=== PATIENT | male | born 1940 | race Caucasian/White ===

== ENCOUNTER 2019-02-16 15:28 | Emergency (ER) | payer MEDICARE, OTHER ==
--- NOTE | 2019-02-16 15:35 | Emergency Department Record ---
History of Present Illness - General Chief Complaint: Abdominal Pain Stated Complaint: STOMACH PAIN,NAUSEA,DEHYDRATED Time Seen by Provider: 02/16/19 15:29 Source: Patient, RN notes reviewed - History of Present Illness Initial Comments: patient hasn increased stooling out of his iliostomy watery and other family members sick with fevers and bodyaches and one other member vomiting with GI complaints. His symptoms started two days ago and he is fatiqued and he took immodium and that slowed the stooling downno abdominal pain and pmh Crohn's disease and colon removed 5 years ago and aortic valve replacement 2 years ago. - Related Data Home Medications Medication Instructions Recorded Confirmed Last Taken Amlodipine Besylate [Norvasc] 5 mg PO DAILY 02/16/19 02/16/19 02/16/19 Famotidine [Pepcid] 40 mg PO BID 02/16/19 02/16/19 02/16/19 Levothyroxine Sodium [Synthroid] 150 mcg PO DAILY 02/16/19 02/16/19 02/16/19 Losartan Potassium 25 mg PO DAILY 02/16/19 02/16/19 02/16/19 Oxycodone HCl/Acetaminophen 1 tab PO Q6H PRN 02/16/19 02/16/19 02/15/19 [Percocet 5mg/325mg] Rosuvastatin Calcium [Crestor] 5 mg PO DAILY 02/16/19 02/16/19 02/16/19 Allergies Allergy/AdvReac Type Severity Reaction Status Date / Time No Known Drug Allergies Allergy Verified 02/16/19 15:59 Review of Systems Reviewed: No additional complaints except as noted below Constitutional: Reports: As per HPI. Denies: Chills, Fever, Malaise, Night sweats, Weakness, Weight change Eyes: Reports: As per HPI. Denies: Eye discharge, Eye pain, Photophobia, Vision change ENT: Reports: As per HPI. Denies: Congestion, Dental pain, Ear pain, Epistaxis, Hearing loss, Throat pain Respiratory: Reports: As per HPI. Denies: Cough, Dyspnea, Hemoptysis, Stridor, Wheezes Cardiovascular: Reports: As per HPI. Denies: Arrhythmia, Chest pain, Dyspnea on exertion, Edema, Murmurs, Orthopnea, Palpitations, Paroxysmal nocturnal dyspnea, Rheumatic Fever, Syncope Endocrine: Reports: As per HPI. Denies: Fatigue, Heat or cold intolerance, Polydipsia, Polyuria Gastrointestinal: Reports: As per HPI, Diarrhea, Nausea. Denies: Abdominal pain, Constipation, Hematemesis, Hematochezia, Melena, Vomiting Genitourinary: Reports: As per HPI. Denies: Dysuria, Frequency, Hematuria, Incontinence, Retention, Testicular pain, Testicular mass, Urgency Musculoskeletal: Reports: As per HPI. Denies: Arthralgia, Back pain, Gout, Joint swelling, Myalgia, Neck pain Skin: Reports: As per HPI. Denies: Bruising, Change in color, Change in hair/nails, Lesions, Pruritus, Rash Neurological: Reports: As per HPI. Denies: Abnormal gait, Confusion, Headache, Numbness, Paresthesias, Seizure, Tingling, Tremors, Vertigo, Weakness Psychiatric: Reports: As per HPI. Denies: Anxiety, Auditory hallucinations, Depression, Homicidal thoughts, Suicidal thoughts, Visual hallucinations Hematological/Lymphatic: Reports: As per HPI. Denies: Anemia, Blood Clots, Easy bleeding, Easy bruising, Swollen glands Physical Exam - General General Appearance: Alert, Oriented x3, Cooperative, No acute distress - Head Head exam: Normal inspection - Eye Eye exam: Normal appearance, PERRL Pupils: Normal accommodation - ENT ENT exam: Normal exam, Mucous membranes moist, Normal external ear exam, Normal orophraynx, TM's normal bilaterally Ear exam: Normal external inspection. negative: External canal tenderness Nasal Exam: Normal inspection. negative: Discharge, Sinus tenderness Mouth exam: Normal external inspection, Tongue normal Teeth exam: Normal inspection. negative: Dental caries Throat exam: Normal inspection. negative: Tonsillar erythema, Tonsillar exudate - Neck Neck exam: Normal inspection, Full ROM. negative: Tenderness - Respiratory Respiratory exam: Normal lung sounds bilaterally. negative: Respiratory distress - Cardiovascular Cardiovascular Exam: Regular rate, Normal rhythm, Normal heart sounds - GI/Abdominal GI/Abdominal exam: Soft, Normal bowel sounds. negative: Tenderness - Rectal Rectal exam: Deferred - exam: Deferred - Extremities Extremities exam: Normal inspection, Full ROM, Normal capillary refill. negative: Tenderness - Back Back exam: Reports: Normal inspection, Full ROM. Denies: Muscle spasm, Rash noted, Tenderness - Neurological Neurological exam: Alert, Normal gait, Oriented X3, Reflexes normal - Psychiatric Psychiatric exam: Normal affect, Normal mood - Skin Skin exam: Dry, Intact, Normal color, Warm Medical Decision Making - Data Complexity MDM Data: Labs Ordered and/or Reviewed - Lab Data Result diagrams: 02/16/19 16:00 02/16/19 16:00 Disposition Clinical Impression: Viral syndrome, Dehydration Disposition: Home, Self-Care Condition: (1) Good Instructions: Gastroenteritis (ED) Additional Instructions: follow up with family Dr in 2 days. clear liqids for 12 hours than bland food like applesauce , bananas, rice toast and yogurt Forms: Patient Portal Access Time of Disposition: 17:02 Quality - Quality Measures Quality Measures: N/A - Blood Pressure Screening Does Patient Have Any of the Following: No, Active Dx of HTN Blood Pressure Classification: Pre-Hypertensive BP Reading Systolic Measurement: 144 Diastolic Measurement: 82 Screening for High Blood Pressure: Patient Exclusion, Hx of HTN [G9744]
[2019-02-16] MEDS ORDERED: 0.9 % SODIUM CHLORIDE 1000ML 1,000 ML IV ONE (16:00)
[2019-02-16 16:12] LABS: ABSOLUTE NEUTROPHIL COUNT 7.19; BASO % 0.2 % (0-6); EOS % 1.2 % (0-6); HEMATOCRIT 52.9 % (42.0-52.0); HEMOGLOBIN 17.1 gm/dl (14.0-18.0); LYMPH % 10.8 % (16-45); MEAN CELL VOLUME 88.8 fl (81-97); MEAN CORPUSCULAR HGB CONC 32.3 g/dl (32-36); MEAN PLATELET VOLUME 9.3 fl (7.4-10.4); MONO % 7.8 % (0-9); PLATELET COUNT 333 K/uL (130-400); RED BLOOD COUNT 5.96 M/uL (4.40-5.70); RED CELL DISTRIBUTION WIDTH 16.3 % (11.5-14.5)
[2019-02-16 16:23] LABS: MEAN CORPUSCULAR HEMOGLOBIN 28.6 pg (27-33)
[2019-02-16 16:24] LABS: INFLUENZA A NEGATIVE (NEGATIVE); INFLUENZA B NEGATIVE (NEGATIVE)
[2019-02-16 16:25] LABS: BLOOD UREA NITROGEN 28 mg/dL (8-23); CREATININE 1.3 mg/dL (0.7-1.2); EST GLOMERULAR FILTRATION RATE 57 mL/min
[2019-02-16 16:26] LABS: LIPASE 10 U/L (13-60); TOTAL PROTEIN 7.9 g/dL (6.6-8.7)
[2019-02-16 16:28] LABS: GLUCOSE,RANDOM 188 mg/dL (74-109)
[2019-02-16 16:31] LABS: ALBUMIN 4.2 g/dL (4.0-5.0); ALKALINE PHOSPHATASE 91 U/L (40-129); ALT/SGPT 78 U/L (<41); AST/SGOT 70 U/L (10.0-50.0); BILIRUBIN,DIRECT < 0.2 mg/dL (0-0.3)
[2019-02-16 17:25] LABS: URINE APPEARANCE CLEAR; URINE BILIRUBIN SMALL (NEGATIVE); URINE BLOOD SMALL (NEGATIVE); URINE COLOR YELLOW; URINE GLUCOSE (UA) NEGATIVE (NEGATIVE); URINE KETONE 15 mg/dL (NEGATIVE); URINE LEUKOCYTE ESTERASE NEGATIVE (NEGATIVE); URINE NITRITE NEGATIVE (NEGATIVE); URINE UROBILINOGEN 0.2 E.U./dL (0.20 - 1.00)
[2019-02-16 17:34] LABS: URINE RBC 0 - 2 (NONE SEEN); URINE WBC 0 - 2 (0-2/hpf)
== END 2019-02-16 17:35 | disposition home or self-care (01) ==
LOC: ER 15:28
DX: E86.0 Dehydration (principal); R53.83 Other fatigue; B34.9 Viral infection, unspecified; R11.0 Nausea; Z95.2 Presence of prosthetic heart valve; I10 Essential (primary) hypertension
CPT/HCPCS: 80048; 80076; 81001; 83690; 85025; 87400; 96360; 96361; 99284

== ENCOUNTER 2019-02-17 14:39 | Observation (INO) | payer MEDICARE, OTHER ==
--- NOTE | 2019-02-17 14:52 | Emergency Department Record ---
History of Present Illness - General Chief Complaint: Abdominal Pain Stated Complaint: ABD PAIN Time Seen by Provider: 02/17/19 14:44 Source: Patient, Family Mode of Arrival: Wheelchair Limitations: No limitations - History of Present Illness Initial Comments: 78 yo male presents not feeling well the last three days. He states he developed nausea, vomiting and increased stool in his ostomy starting on Thursday evening. He (and his daughter) report that 7 out of about 18 people developed similar nausea, vomiting, and diarrhea. He was seen in the ED yesterday. He felt improved after IV fluids. By evening yesterday his nausea returned with some aching, "gnawing" abdominal pain. He states the loose stooling in the ostomy is still present but decreasing. He does not vomit but has significant burping. No fever. No blood in any vomit or stool. His ostomy has been present for about 5 years. He reports he had a colectomy due to significant ulcerative colitis. PCP is Dr Roblero in [place]. He is unsure who his surgeon or GI special are. PMHx of SBO, TVAR (aortic valve replacement due to ), UC, CAD, COPD, high output ileostomy, KRISTIN, Polio, Asthma, DVT, Former Smoker. MD Complaint: Abdominal pain -: Days(s) (3 days) Location: Epigastric, Periumbilical Radiation: Epigastric Migration to: Epigastric, Periumbilical Severity: Moderate Quality: Aching, Burning, Cramping, Other Consistency: Constant Improves With: Nothing Worsens With: Eating Context: Possible food poisoning (7 out of 18 people at a meal developed GI symptoms) Associated Symptoms: Anorexia, Nausea - Related Data Allergies Allergy/AdvReac Type Severity Reaction Status Date / Time No Known Drug Allergies Allergy Verified 02/16/19 15:59 Review of Systems Constitutional: Reports: Malaise. Denies: Chills, Fever Eyes: Denies: Eye discharge ENT: Denies: Congestion, Ear pain, Throat pain Respiratory: Denies: Cough, Dyspnea, Hemoptysis, Stridor, Wheezes Cardiovascular: Denies: Chest pain, Palpitations, Syncope Endocrine: Denies: Polydipsia, Polyuria Gastrointestinal: Reports: Abdominal pain, Diarrhea, Nausea. Denies: Con stipation, Hematemesis, Hematochezia, Melena, Vomiting Genitourinary: Denies: Discharge, Dysuria, Frequency, Hematuria Musculoskeletal: Denies: Arthralgia, Back pain, Myalgia Skin: Denies: Bruising, Change in color, Rash Neurological: Denies: Headache, Numbness, Weakness Psychiatric: Denies: Anxiety Hematological/Lymphatic: Denies: Easy bleeding, Easy bruising Past Medical History - SOCIAL HISTORY Smoking Status: Former smoker Drug Use: None - RESPIRATORY Hx Respiratory Disorders: Yes Hx Asthma: Yes - CARDIOVASCULAR Hx Cardio Disorders: Yes Hx Cardiac Cath: Yes Hx Hypertension: Yes - NEURO Hx Neuro Disorders: No - GI Hx GI Disorders: Yes Hx Crohn's Disease: Yes Comment:: lots of bowel problems/ - Hx Genitourinary Disorders: No - ENDOCRINE Hx Endocrine Disorders: Yes Hx Thyroid Disease: Yes - MUSCULOSKELETAL Hx Musculoskeletal Disorders: Yes Comment:: Polio - PSYCH Hx Psych Problems: No - HEMATOLOGY/ONCOLOGY Hx Hematology/Oncology Disorders: No Physical Exam - General General Appearance: Alert, Oriented x3, Cooperative, No acute distress Limitations: No limitations - Head Head exam: Atraumatic, Normal inspection - Eye Eye exam: Normal appearance, PERRL. negative: Conjunctival injection, Scleral icterus - ENT ENT exam: Normal exam, Mucous membranes moist Ear exam: Normal external inspection Nasal Exam: Normal inspection Mouth exam: Normal external inspection Throat exam: Normal inspection - Neck Neck exam: Normal inspection. negative: Lymphadenopathy, Tenderness - Respiratory Respiratory exam: Normal lung sounds bilaterally. negative: Accessory muscle use, Decreased breath sounds, Prolonged expiratory, Respiratory distress, Rhonchi, Stridor, Wheezes - Cardiovascular Cardiovascular Exam: Normal rhythm, Normal heart sounds Peripheral Pulses: 2+: Radial (R), Radial (L) - GI/Abdominal GI/Abdominal exam: Soft, Tenderness (mild mid line umbilical to epigastric tenderness, very soft, no rebound or guarding, ostomy intact, (empty - he changed the bag prior to arrival)). negative: Distended, Guarding, Rebound, Ri gid - Extremities Extremities exam: Normal inspection - Back Back exam: Denies: CVA tenderness (R), CVA tenderness (L) - Neurological Neurological exam: Alert, Oriented X3 - Psychiatric Psychiatric exam: negative: Agitated, Anxious - Skin Skin exam: negative: Abrasion, Cyanosis, Dry, Intact, Mottled Course - Reevaluation(s) Reevaluation #1: 02/17/19 15:31 The CBC was reviewed The WBC is 12.6 The CMP was reviewed. The CR is 1.2 HCO3 is 20 Glucose is 233 02/17/19 15:32 Lipase is normal 02/17/19 15:49 The nausea and discomfort are improved but not gone Waiting for CT scan. 1/2 bottle of oral consumed 02/17/19 16:09 02/17/19 17:[address] scan results was reviewed and a copy provided to the patient. No signs of obstruction or inflammation. The incidental findings were discussed with the patient and his daughter. The patient still has some nausea and occasional pain. I recommend OBV overnight with GI rest, IVF and symptomatic care given his likely enteritis has not resolved. Although he is feeling better he agrees with the plan. I SW Natalia Sue ERECTOR OPERATOR regarding the admission. 02/17/19 18:49 Medical Decision Making - Lab Data Result diagrams: 02/17/19 15:00 02/17/19 15:00 Disposition Disposition: Admit Clinical Impression: Nausea Diarrhea Qualifiers: Diarrhea type: unspecified type Qualified Code(s): R19.7 - Diarrhea, unspecified Abdominal pain Qualifiers: Abdominal location: unspecified location Qualified Code(s): R10.9 - Unspecified abdominal pain Disposition: Still a Patient at [facility] Decision to Admit: Admit from ER Decision to Admit Date: 02/17/19 Decision to Admit Time: 17:07 Condition: (2) Stable Forms: Patient Portal Access Time of Disposition: 17:08 Quality - Quality Measures Quality Measures: N/A - Blood Pressure Screening Does Patient Have Any of the Following: No, Active Dx of HTN Blood Pressure Classification: Pre-Hypertensive BP Reading Systolic Measurement: 116 Diastolic Measurement: 81 Screening for High Blood Pressure: Patient Exclusion, Hx of HTN [G9744]
[2019-02-17] MEDS ORDERED: 0.9 % SODIUM CHLORIDE 1000ML 1,000 ML IV ONE ×2 (14:53→19:27)
[2019-02-17] MEDS ORDERED: ACETAMINOPHEN 1,000 MG/100 ML BTL IVPB ONE (14:53)
[2019-02-17] MEDS ORDERED: ONDANSETRON HCL IV 4 MG/2 ML VIAL IVP ONE ×2 (14:53→16:09)
[2019-02-17 15:09] LABS: ABSOLUTE NEUTROPHIL COUNT 11.27; BASO % 0.1 % (0-6); EOS % 0.1 % (0-6); HEMATOCRIT 50.9 % (42.0-52.0); HEMOGLOBIN 16.6 gm/dl (14.0-18.0); LYMPH % 5.3 % (16-45); MEAN CELL VOLUME 89.1 fl (81-97); MEAN CORPUSCULAR HGB CONC 32.6 g/dl (32-36); MEAN PLATELET VOLUME 9.1 fl (7.4-10.4); MONO % 4.9 % (0-9); PLATELET COUNT 334 K/uL (130-400); RED BLOOD COUNT 5.71 M/uL (4.40-5.70); WHITE BLOOD COUNT W/O DIFF 12.6 K/uL (4.2-12.2)
[2019-02-17 15:18] LABS: BLOOD UREA NITROGEN 31 mg/dL (8-23); CREATININE 1.2 mg/dL (0.7-1.2); EST GLOMERULAR FILTRATION RATE > 60 mL/min; TOTAL PROTEIN 7.4 g/dL (6.6-8.7)
[2019-02-17 15:19] LABS: LIPASE 7 U/L (13-60)
[2019-02-17 15:20] LABS: GLUCOSE,RANDOM 233 mg/dL (74-109)
[2019-02-17 15:21] LABS: INR 1.3; PROTHROMBIN TIME (PATIENT) 13.1 SECONDS (9.5-12.1)
[2019-02-17 15:23] LABS: ALB/GLOB RATIO 1.2 (1.1-1.8); ALKALINE PHOSPHATASE 77 U/L (40-129); ALT/SGPT 49 U/L (<41); AST/SGOT 33 U/L (10.0-50.0)
[2019-02-17 15:27] LABS: PLATELET ESTIMATE NORMAL (NORMAL)
[2019-02-17 15:28] LABS: ANISOCYTOSIS 1+
[2019-02-17] MEDS ORDERED: MORPHINE SULFATE 5 MG/ML VIAL IVP ONE ×2 (16:09→17:37)
--- NOTE | 2019-02-17 16:52 | CT SCAN REPORT ---
EXAMINATION: CT Abdomen and Pelvis without IV Contrast EXAM DATE: 02/17/2019 4:43 PM TECHNIQUE: Standard protocol CT imaging of the abdomen and pelvis was performed without intravenous c ontrast. INDICATION: nausea, pain, Hx of ostomy colectomy,diarrhea COMPARISON: None ENCOUNTER: Not applicable CT ABDOMEN AND PELVIS FINDINGS: Lung Bases: Basilar bronchial wall thickening with occasional mucus impaction. No basilar pulmonary c onsolidation. There is a large hiatal hernia. There are coronary artery calcifications. Hepatobiliary: The liver has a normal size with a smooth surface. The gallbladder is absent. There is no biliary dilatation. Pancreas: The pancreas is normal. Spleen: The spleen is not enlarged. Adrenals: The adrenal glands are normal. Kidneys, Ureters, & Bladder: Exophytic fluid attenuating lesion at the superior pole left kidney anthony ures 3.6 x 4.3 x 4.7 cm with hyperdense material layering dependently. Anterior left renal fluid atte nuating lesion is also present. Multiple left renal calculi measuring up to 2 mm. No hydronephrosis. Probable medullary sinus cysts at the lower pole left kidney. Both ureters have a normal course and c aliber and the urinary bladder a normal morphology and uniform wall thickness. No ureteral or bladder calculi are identified. Gastrointestinal: The stomach and small bowel are normal with no obstruction or inflammation. Prior c olectomy. End ileostomy in the right upper abdomen. Reproductive Organs: Unremarkable Lymphatic System: There is no adenopathy within the abdomen or pelvis. Vasculature: Normal caliber abdominal aorta with significant atherosclerotic disease. Peritoneum: No free fluid, free air, or inflammation Abdominal wall & Musculoskeletal: No suspicious bone lesions. Advanced degenerative changes of the th oracolumbar spine. Suspect spinal canal stenosis at T12-L1 related to broad-based disc bulge.. Assessment of the solid organs, soft tissues, and vascular structures is overall limited on noncontra st imaging, IMPRESSION: 1. Prior colectomy with right upper abdominal ileostomy. 2. Nonobstructive left nephrolithiasis. 3. Large hiatal hernia. 4. Lower lung bronchitis. 5. Possible spinal canal stenosis. Dictated by: Frandy Apodaca MD on 02/17/2019 4:41 PM. .
[2019-02-17] MEDS ORDERED: FAMOTIDINE 20MG TABLET PO ONE (17:43)
[2019-02-17] MEDS ORDERED: MORPHINE SULFATE 5 MG/ML VIAL IVP PRN (19:27)
[2019-02-17] MEDS ORDERED: ONDANSETRON HCL IV 4 MG/2 ML VIAL IVP PRN (19:27)
[2019-02-17] MEDS: CALCIUM CARBONATE 500 MG TAB.CHEW PO PRN (20:26)
[2019-02-17 23:51] LABS: MOLECULAR C DIFF TOXIN SCREEN NOT DETECTED (NOT DETECT)
[2019-02-18 00:04] LABS: CRYPTOSPORIDIUM PARVUM ANTIGEN NOT DETECTED (NOT DETECT)
[2019-02-18 00:19] LABS: ROTOVIRUS NOT DETECTED (NOT DETECT)
[2019-02-18] MEDS: CALCIUM CARBONATE 500 MG TAB.CHEW PO PRN ×3 (02:24→15:12)
[2019-02-18] MEDS ORDERED: FAMOTIDINE 20MG TABLET PO SCH (07:00)
[2019-02-18] MEDS ORDERED: DIPHENHYDRAMINE HCL 25 MG CAPSULE PO ONE (08:30)
--- NOTE | 2019-02-18 09:38 | History & Physical ---
History of Present Illness - Date of Service Date of Service for History & Physical: 02/18/19 - History of Present Illness Admitting Diagnosis: Dairrhea, nausea, abdominal pain, dehydration History of Present Illness: 78 yo male presents to [facility] ER for dehydration, abd pain, liquid colostomy output and nausea with no vomiting. Pt attended a family gather of 18 ppl, 7 of them develop GI symptoms of varying degrees. Most recovered in 1-2 days but pt has colostomy, having freq liq output and decreased PO intake since thursday. PMH SBO, Crohn's/UC (colostomy), with TAVR, CAD, COPD, KRISTIN, Polio, asthma, DVT, and former smoker. Abd/pelvis CT - no acute process, has known large hiatal hernia, COPD but also found kidney stones and renal cysts Pt was given 500cc NS bolus, Pepcid 20mg IVP, MS 5mg IVP, tylenol 1000mg IVP, Zofran 4mg IVP. Selected Entries 02/17/19 02/17/19 14:54 19:27 Temperature 97.7 F Temperature Oral Source Pulse Rate 108 H Respiratory 20 Rate Blood Pressure 116/81 Blood Pressure Sitting Position Pulse Ox 97 Oxygen Delivery Room Air Method Laboratory Tests 02/17/19 02/17/19 02/17/19 15:00 15:00 15:00 WBC 12.6 H RBC 5.71 H Hgb 16.6 Hct 50.9 Plt Count 334 PT 13.1 H INR 1.3 APTT 29.0 Sodium 134 L Potassium 4.5 Chloride 98 Carbon Dioxide 20.0 L Anion Gap 16.0 BUN 31 H Creatinine 1.2 Estimated GFR > 60 Random Glucose 233 H Calcium 9.5 Total Bilirubin 0.30 AST 33 ALT 49 H Alkaline Phosphatase 77 Total Protein 7.4 Albumin 4.0 Globulin 3.4 Albumin/Globulin Ratio 1.2 Lipase 7 L Stool Occult Blood Stool for White Cells Rotavirus Antigen Stl C.difficile Tox A&B Cryptosporid parvum Ag Giardia lamblia Ag 02/17/19 02/17/19 02/17/19 20:45 20:45 20:45 WBC RBC Hgb Hct Plt Count PT INR APTT Sodium Potassium Chloride Carbon Dioxide Anion Gap BUN Creatinine Estimated GFR Random Glucose Calcium Total Bilirubin AST ALT Alkaline Phosphatase Total Protein Albumin Globulin Albumin/Globulin Ratio Lipase Stool Occult Blood Positive H Stool for White Cells No wbc's observed Rotavirus Antigen Not detected Stl C.difficile Tox A&B Not detected Cryptosporid parvum Ag Not detected Giardia lamblia Ag Not detected 02/18/19 Pt sitting up in bed, no acute distress, tolerating jello and yogurt. Pt reports that he has a return of appetite, no nausea, colostomy output has slowed down but us still looser than his normal paste like consistency. Making light yellow urine compared to the dark urine before fluids. Lungs dim but clear, Heart RRR no mumur noted (recent TAVR), no edema in legs. BSx3 (RUQ not accessible r/t colostomy). Stoma protruding 1-2 cm, beefy red. Pt reports stoma is baseline even with the diarrhea. POC stop IVF, encouraged PO intake, advance diet to soft by lunch. If pt able to tolerate food and water, make urine, then he can d/c today. F/u PCP in 1 week PCP Jolanta RITCHIE Travel Screening - Travel/Exposure Within Last 30 Days Have you traveled within the last 30 days?: No - Travel/Exposure Within Last Year Have you traveled outside the [place] in the last year?: No - Additonal Travel Details Have you been exposed to anyone with a communicable illness?: No Review of Systems Constitutional: Reports: Malaise. Denies: Chills, Fever Eyes: Denies: Eye discharge ENT: Denies: Congestion, Ear pain, Throat pain Respiratory: Denies: Cough, Dyspnea, Hemoptysis, Stridor, Wheezes Cardiovascular: Denies: Chest pain, Palpitations, Syncope Endocrine: Denies: Polydipsia, Polyuria Gastrointestinal: Reports: Abdominal pain, Diarrhea, Nausea. Denies: Constipation, Hematemesis, Hematochezia, Melena, Vomiting Genitourinary: Denies: Discharge, Dysuria, Frequency, Hematuria Musculoskeletal: Denies: Arthralgia, Back pain, Myalgia Skin: Denies: Bruising, Change in color, Rash Neurological: Denies: Headache, Numbness, Weakness Psychiatric: Denies: Anxiety Hematological/Lymphatic: Denies: Easy bleeding, Easy bruising Past Medical History - SOCIAL HISTORY Smoking Status: Former smoker Alcohol Use: Occasional Drug Use: None - RESPIRATORY Hx Respiratory Disorders: Yes Hx Asthma: Yes (childhood - resolved) - CARDIOVASCULAR Hx Cardio Disorders: Yes Hx Cardiac Cath: Yes Hx Hypertension: Yes Comment:: aortic vv replacement 2017 - NEURO Hx Neuro Disorders: No - GI Hx GI Disorders: Yes Hx Abdominal Pain: Yes Hx Crohn's Disease: Yes Hx GI Bleed: Yes Hx Irritable Bowel: Yes Hx Obstructive Bowel: Yes (prior to colectomy) Comment:: colitis/colectomy - Hx Genitourinary Disorders: Yes Hx Kidney Stones: Yes - ENDOCRINE Hx Endocrine Disorders: Yes Hx Thyroid Disease: Yes - MUSCULOSKELETAL Hx Musculoskeletal Disorders: Yes Hx Arthritis: Yes Comment:: right shoulder - PSYCH Hx Psych Problems: No - HEMATOLOGY/ONCOLOGY Hx Hematology/Oncology Disorders: No Hx Blood Transfusions: Yes Hx Blood Transfusion Reaction: No Family Medical History Any Significant Family History?: No Hx Alcohol Use: Brother/Sister Hx Cancer: Brother/Sister Hx Depression: Brother/Sister Hx Diabetes: Mother Hx Heart Disease: Brother/Sister Hx HTN: Brother/Sister H&P Meds/Allergies - Allergies Allergies: Allergies Allergy/AdvReac Type Severity Reaction Status Date / Time No Known Drug Allergies Allergy Verified 02/16/19 15:59 - Active Medications Active Medications: Current Medications Amlodipine Besylate (Norvasc) 5 mg PO DAILY [facility] Calcium Carbonate/Glycine (Tums) 1,000 mg PO Q4H PRN PRN Reason: HEARTBURN Last Admin: 02/18/19 07:18 Dose: 1,000 mg Documented by: Famotidine (Pepcid) 40 mg PO BIDAC MARY BETH Last Admin: 02/18/19 07:16 Dose: 40 mg Documented by: Levothyroxine Sodium (Synthroid) 150 mcg PO DAILY [facility] Losartan Potassium (Cozaar) 25 mg PO DAILY MARY BETH Morphine Sulfate (Morphine Sulfate) 5 mg IVP Q4H PRN PRN Reason: PAIN - SEVERE (8-10) Stop: 02/24/19 19:28 Last Admin: 02/17/19 22:09 Dose: 5 mg Documented by: Ondansetron HCl (Zofran) 4 mg IVP Q4H PRN PRN Reason: NAUSEA Physical Exam - Vital Signs Vital Signs: Vital Signs - Last 24 Hrs Temp Pulse Pulse Resp BP BP Pulse Ox 02/18/19 06:00 98.1 F 85 18 122/52 95 02/17/19 19:27 97.7 F 107 H 18 149/76 94 L 02/17/19 14:54 108 H 20 116/81 97 - General General Appearance: Alert, Oriented x3, Cooperative, No acute distress Limitations: No limitations - Head Head exam: Atraumatic, Normal inspection - Eye Eye exam: Normal appearance, PERRL. negative: Conjunctival injection, Scleral icterus - ENT ENT exam: Normal exam, Mucous membranes dry Ear exam: Normal external inspection Nasal Exam: Normal inspection Mouth exam: Normal external inspection Throat exam: Normal inspection - Neck Neck exam: Normal inspection. negative: Lymphadenopathy, Tenderness - Respiratory Respiratory exam: Normal lung sounds bilaterally. negative: Accessory muscle use, Decreased breath sounds, Prolonged expiratory, Respiratory distress, Rhonchi, Stridor, Wheezes - Cardiovascular Cardiovascular Exam: Normal rhythm, Normal heart sounds Peripheral Pulses: 2+: Radial (R), Radial (L), Dorsalis Pedis (R), Dorsalis Pedis (L) - GI/Abdominal GI/Abdominal exam: Soft. negative: Distended, Guarding, Rebound, Rigid, Tenderness - Rectal Rectal exam: Deferred - exam: Deferred - Extremities Extremities exam: Normal inspection - Back Back exam: Denies: CVA tenderness (R), CVA tenderness (L) - Neurological Neurological exam: Alert, Oriented X3 - Psychiatric Psychiatric exam: negative: Agitated, Anxious - Skin Skin exam: negative: Abrasion, Cyanosis, Dry, Intact, Mottled Results - Labs Result Diagrams: 02/17/19 15:00 02/17/19 15:00 Labs Last 24 Hours: Laboratory Results - last 24 hr 02/17/19 02/17/19 02/17/19 15:00 15:00 15:00 WBC 12.6 H RBC 5.71 H Hgb 16.6 Hct 50.9 MCV 89.1 MCH 29.0 MCHC 32.6 RDW 16.0 H Plt Count 334 MPV 9.1 Neutrophils % 83.0 H Band Neutrophils % 8.0 H Lymphocytes % 5.3 L Monocytes % 4.9 Eosinophils % 0.1 Basophils % 0.1 Absolute Neutrophils 11.27 Lymphocytes 5.0 L Monocytes 4.0 Platelet Estimate Normal Anisocytosis 1+ PT 13.1 H INR 1.3 APTT 29.0 Sodium 134 L Potassium 4.5 Chloride 98 Carbon Dioxide 20.0 L Anion Gap 16.0 BUN 31 H Creatinine 1.2 Estimated GFR > 60 Random Glucose 233 H Calcium 9.5 Total Bilirubin 0.30 AST 33 ALT 49 H Alkaline Phosphatase 77 Total Protein 7.4 Albumin 4.0 Globulin 3.4 Albumin/Globulin Ratio 1.2 Lipase 7 L Stool Occult Blood Stool for White Cells Rotavirus Antigen Stl C.difficile Tox A&B Cryptosporid parvum Ag Giardia lamblia Ag 02/17/19 02/17/19 02/17/19 20:45 20:45 20:45 WBC RBC Hgb Hct MCV MCH MCHC RDW Plt Count MPV Neutrophils % Band Neutrophils % Lymphocytes % Monocytes % Eosinophils % Basophils % Absolute Neutrophils Lymphocytes Monocytes Platelet Estimate Anisocytosis PT INR APTT Sodium Potassium Chloride Carbon Dioxide Anion Gap BUN Creatinine Estimated GFR Random Glucose Calcium Total Bilirubin AST ALT Alkaline Phosphatase Total Protein Albumin Globulin Albumin/Globulin Ratio Lipase Stool Occult Blood Positive H Stool for White Cells No wbc's observed Rotavirus Antigen Not detected Stl C.difficile Tox A&B Not detected Cryptosporid parvum Ag Not detected Giardia lamblia Ag Not detected - Imaging and Cardiology CT scan - abdomen Status: Report reviewed VTE H&P Assessment - Risk for VTE Risk for VTE: Yes Risk Level: Moderate Risk Assessment Date: 02/18/19 Risk Assessment Time: 10:00 VTE Orders Placed or Will Be Placed: Yes Plan - Detailed Diagnosis and Plan (1) Gastroenteritis Current Visit: Yes Status: Acute Base Code: K52.9 - NONINFECTIVE GASTROENTERITIS AND COLITIS, UNSPECIFIED Comment: 02/18/19 -pt is tolerating jello and yougurt at this time, still having liq/loose colostomy output -no nausea, no abd pain- all controlled with tums -pt to attempt to advance diet and d/c today (2) Abdominal pain Current Visit: Yes Status: Acute Qualifiers: Abdominal location: unspecified location Qualified Code(s): R10.9 - Uns pecified abdominal pain Base Code: R10.9 - UNSPECIFIED ABDOMINAL PAIN Comment: 02/18/19 -pt was given morphine 5mg x2 in ER and once on the floor -no pain this AM, pain controlled with tums -continue to monitor -CT abd not acute process -stool studies neg except for occult positive (f/u PCP) (3) Diarrhea Current Visit: Yes Status: Acute Qualifiers: Diarrhea type: unspecified type Qualified Code(s): R19.7 - Diarrhea, unspecified Base Code: R19.7 - DIARRHEA, UNSPECIFIED Comment: 02/18/19 -colostomy output has been liq for 4 days, continues to be loose but outpt volume has decreased -pt attempting to advance diet and tolerated PO intake for fluid needs -stool cultures neg for infection (4) Nausea Current Visit: Yes Status: Acute Base Code: R11.0 - NAUSEA Comment: 02/18/19 -pt was given Zofran 4mg IVP last night but nause has resolved since arrival to the floor -appetite is returning, pt attempting to advance diet at this time -Ct neg for acute process (5) Dehydration Current Visit: No Status: Acute Base Code: E86.0 - DEHYDRATION Comment: 02/18/19 -Pt was given 500 cc NS Bolus, NS 125/HR infusing through the night - BUN 31, Cr 1.2, GFR>60 -stop IVF, pt encouraged to increase PO intake -continue to monitor (6) DVT prophylaxis Current Visit: Yes Status: Acute Base Code: Z29.9 - ENCOUNTER FOR PROPHYLACTIC MEASURES, UNSPECIFIED Comment: 02/18/19 -lovenox if pt stays more than 1 over night (7) Full code status Current Visit: Yes Status: Acute Base Code: Z78.9 - OTHER SPECIFIED HEALTH STATUS Comment: 02/18/19 -full code
[2019-02-18] MEDS ORDERED: LEVOTHYROXINE SODIUM 150 MCG TABLET PO SCH (10:00)
[2019-02-18] MEDS ORDERED: LOSARTAN POTASSIUM 25 MG TABLET PO SCH (10:00)
[2019-02-18] MEDS ORDERED: AMLODIPINE BESYLATE 5MG TAB PO SCH (10:00)
[2019-02-18 12:30] LABS: BLOOD UREA NITROGEN 20 mg/dL (8-23); CREATININE 0.9 mg/dL (0.7-1.2); EST GLOMERULAR FILTRATION RATE > 60 mL/min
[2019-02-18 12:32] LABS: GLUCOSE,RANDOM 149 mg/dL (74-109)
--- NOTE | 2019-02-18 15:43 | Discharge Summary ---
Providers Discharge Summary Date: 02/18/19 Date of admission: 02/17/19 19:19 Expected Date of Discharge: 02/18/19 Attending physician: NADINE NICHOLS Primary care physician: JOLANTA ARORA Physical Exam - Vital Signs Vital Signs: Vital Signs - Last 24 Hrs Temp Pulse Resp BP Pulse Ox 02/18/19 14:00 97.9 F 86 18 121/54 94 L 02/18/19 06:00 98.1 F 85 18 122/52 95 02/17/19 19:27 97.7 F 107 H 18 149/76 94 L - General General Appearance: Alert, Oriented x3, Cooperative, No acute distress Limitations: No limitations - Head Head exam: Atraumatic, Normal inspection - Eye Eye exam: Normal appearance, PERRL. negative: Conjunctival injection, Scleral icterus - ENT ENT exam: Normal exam, Mucous membranes dry Ear exam: Normal external inspection Nasal Exam: Normal inspection Mouth exam: Normal external inspection Throat exam: Normal inspection - Neck Neck exam: Normal inspection. negative: Lymphadenopathy, Tenderness - Respiratory Respiratory exam: Normal lung sounds bilaterally. negative: Accessory muscle use, Decreased breath sounds, Prolonged expiratory, Respiratory distress, Rhonchi, Stridor, Wheezes - Cardiovascular Cardiovascular Exam: Normal rhythm, Normal heart sounds Peripheral Pulses: 2+: Radial (R), Radial (L), Dorsalis Pedis (R), Dorsalis Pedis (L) - GI/Abdominal GI/Abdominal exam: Soft. negative: Distended, Guarding, Rebound, Rigid, Tenderness - Rectal Rectal exam: Deferred - exam: Deferred - Extremities Extremities exam: Normal inspection - Back Back exam: Denies: CVA tenderness (R), CVA tenderness (L) - Neurological Neurological exam: Alert, Oriented X3 - Psychiatric Psychiatric exam: negative: Agitated, Anxious - Skin Skin exam: negative: Abrasion, Cyanosis, Dry, Intact, Mottled Hospitalization - Hospitalization Admission Diagnosis: Dairrhea, nausea, abdominal pain, dehydration - Problem List/Discharge Diagnosis (1) Gastroenteritis Current Visit: Yes Status: Acute Base Code: K52.9 - NONINFECTIVE GASTROENTERITIS AND COLITIS, UNSPECIFIED Comment: 02/18/19 -pt is tolerating jello and yougurt at this time, still having liq/loose colostomy output -no nausea, no abd pain- all controlled with tums -pt to attempt to advance diet and d/c today -pt has tolerated diet advancement, d/c (2) Abdominal pain Current Visit: Yes Status: Acute Discharge Diagnosis: Abdominal location: unspecified location Qualified Code(s): R10.9 - Unspecified abdominal pain Base Code: R10.9 - UNSPECIFIED ABDOMINAL PAIN Comment: 02/18/19 -pt was given morphine 5mg x2 in ER and once on the floor -no pain this AM, pain controlled with tums -continue to monitor -CT abd not acute process -stool studies neg except for occult positive (f/u PCP) (3) Diarrhea Current Visit: Yes Status: Acute Discharge Diagnosis: Diarrhea type: unspecified type Qualified Code(s): R19.7 - Diarrhea, unspecified Base Code: R19.7 - DIARRHEA, UNSPECIFIED Comment: 02/18/19 -colostomy output has been liq for 4 days, continues to be loose but outpt volume has decreased -pt attempting to advance diet and tolerated PO intake for fluid needs -stool cultures neg for infection (4) Nausea Current Visit: Yes Status: Acute Base Code: R11.0 - NAUSEA Comment: 02/18/19 -pt was given Zofran 4mg IVP last night but nause has resolved since arrival to the floor -appetite is returning, pt attempting to advance diet at this time -Ct neg for acute process (5) Dehydration Current Visit: No Status: Acute Base Code: E86.0 - DEHYDRATION Comment: 02/18/19 -Pt was given 500 cc NS Bolus, NS 125/HR infusing through the night - BUN 31, Cr 1.2, GFR>60 -stop IVF, pt encouraged to increase PO intake -continue to monitor (6) DVT prophylaxis Current Visit: Yes Status: Acute Base Code: Z29.9 - ENCOUNTER FOR PROPHYLACTIC MEASURES, UNSPECIFIED Comment: 02/18/19 -lovenox if pt stays more than 1 over night (7) Full code status Current Visit: Yes Status: Acute Base Code: Z78.9 - OTHER SPECIFIED HEALTH STATUS Comment: 02/18/19 -full code - Hospitalization Course Disposition: Home, Self-Care Hospital Course: 78 yo male presents to [facility] ER for dehydration, abd pain, liquid colostomy output and nausea with no vomiting. Pt attended a family gather of 18 ppl, 7 of them develop GI symptoms of varying degrees. Most recovered in 1-2 days but pt has colostomy, having freq liq output and decreased PO intake since thursday. PMH SBO, Crohn's/UC (colostomy), with TAVR, CAD, COPD, KRISTIN, Polio, asthma, DVT, and former smoker. Abd/pelvis CT - no acute process, has known large hiatal hernia, COPD but also f ound kidney stones and renal cysts Pt was given 500cc NS bolus, Pepcid 20mg IVP, MS 5mg IVP, tylenol 1000mg IVP, Zofran 4mg IVP. Selected Entries 02/17/19 02/17/19 14:54 19:27 Temperature 97.7 F Temperature Oral Source Pulse Rate 108 H Respiratory 20 Rate Blood Pressure 116/81 Blood Pressure Sitting Position Pulse Ox 97 Oxygen Delivery Room Air Method Laboratory Tests 02/17/19 02/17/19 02/17/19 15:00 15:00 15:00 WBC 12.6 H RBC 5.71 H Hgb 16.6 Hct 50.9 Plt Count 334 PT 13.1 H INR 1.3 APTT 29.0 Sodium 134 L Potassium 4.5 Chloride 98 Carbon Dioxide 20.0 L Anion Gap 16.0 BUN 31 H Creatinine 1.2 Estimated GFR > 60 Random Glucose 233 H Calcium 9.5 Total Bilirubin 0.30 AST 33 ALT 49 H Alkaline Phosphatase 77 Total Protein 7.4 Albumin 4.0 Globulin 3.4 Albumin/Globulin Ratio 1.2 Lipase 7 L Stool Occult Blood Stool for White Cells Rotavirus Antigen Stl C.difficile Tox A&B Cryptosporid parvum Ag Giardia lamblia Ag 02/17/19 02/17/19 02/17/19 20:45 20:45 20:45 WBC RBC Hgb Hct Plt Count PT INR APTT Sodium Potassium Chloride Carbon Dioxide Anion Gap BUN Creatinine Estimated GFR Random Glucose Calcium Total Bilirubin AST ALT Alkaline Phosphatase Total Protein Albumin Globulin Albumin/Globulin Ratio Lipase Stool Occult Blood Positive H Stool for White Cells No wbc's observed Rotavirus Antigen Not detected Stl C.difficile Tox A&B Not detected Cryptosporid parvum Ag Not detected Giardia lamblia Ag Not detected 02/18/19 Pt sitting up in bed, no acute distress, tolerating jello and yogurt. Pt reports that he has a return of appetite, no nausea, colostomy output has slowed down but us still looser than his normal paste like consistency. Making light yellow urine compared to the dark urine before fluids. Lungs dim but clear, Heart RRR no mumur noted (recent TAVR), no edema in legs. BSx3 (RUQ not accessible r/t colostomy). Stoma protruding 1-2 cm, beefy red. Pt reports stoma is baseline even with the diarrhea. POC stop IVF, encouraged PO intake, advance diet to soft by lunch. If pt able to tolerate food and water, make urine, then he can d/c today. F/u PCP in 1 week PCP Jolanta RITCHIE Procedures: Imaging and X-Rays 02/17/19 15:25 ABDOMEN/PELVIS WO CONTRAST [CT] Stat Abnormal Labs: Abnormal Lab Results 02/17/19 02/17/19 02/17/19 Range/Units 15:00 15:00 15:00 WBC 12.6 H (4.2-12.2) K/uL RBC 5.71 H (4.40-5.70) M/uL RDW 16.0 H (11.5-14.5) % Neutrophils % 83.0 H (47-80) % Band Neutrophils % 8.0 H (0-5) % Lymphocytes % 5.3 L (16-45) % Lymphocytes 5.0 L (16-45) % PT 13.1 H (9.5-12.1) SECONDS Sodium 134 L (136-145) mmol/L Chloride (98-107) mmol/L Carbon Dioxide 20.0 L (22-29) mmol/L BUN 31 H (8-23) mg/dL Random Glucose 233 H (74-109) mg/dL Calcium (8.8-10.2) mg/dL ALT 49 H (<41) U/L Lipase 7 L (13-60) U/L Stool Occult Blood (NEGATIVE) 02/17/19 02/18/19 Range/Units 20:45 10:28 WBC (4.2-12.2) K/uL RBC (4.40-5.70) M/uL RDW (11.5-14.5) % Neutrophils % (47-80) % Band Neutrophils % (0-5) % Lymphocytes % (16-45) % Lymphocytes (16-45) % PT (9.5-12.1) SECONDS Sodium (136-145) mmol/L Chloride 108 H (98-107) mmol/L Carbon Dioxide (22-29) mmol/L BUN (8-23) mg/dL Random Glucose 149 H (74-109) mg/dL Calcium 8.6 L (8.8-10.2) mg/dL ALT (<41) U/L Lipase (13-60) U/L Stool Occult Blood Positive H (NEGATIVE) Condition at Discharge: (2) Stable Discharge Medications - Discharge Medications Home Medications: Ambulatory Orders Amlodipine Besylate [Norvasc] 5 mg PO DAILY 02/16/19 [Last Taken 02/16/19] Famotidine [Pepcid] 40 mg PO BID 02/16/19 [Last Taken 02/16/19] Levothyroxine Sodium [Synthroid] 150 mcg PO DAILY 02/16/19 [Last Taken 02/16/19] Losartan Potassium 25 mg PO DAILY 02/16/19 [Last Taken 02/16/19] Oxycodone HCl/Acetaminophen [Percocet 5mg/325mg] 1 tab PO Q6H PRN 02/16/19 [Last Taken 02/15/19] Rosuvastatin Calcium [Crestor] 5 mg PO DAILY 02/16/19 [Last Taken 02/16/19] Calcium Carbonate [Tums] 1,000 mg PO Q4H PRN tab.chew 02/18/19 [Last Taken Unknown] Discharge Plan - Discharge Instructions Activity at Discharge: Increase Activity as Tolerated Diet at Discharge: Advance to Usual Diet Quality Measures - Quality Measures Quality Measures: Advance Directives, Documentation of Current Medications in Medical Record, Elder Maltreatment Screen and Follow-Up Plan, Screening for High Blood Pressure and F/U Documented - Current Medications Quality Measure: Measure #130: Documentation of Current Medications Documentation of Current Medications: <Current Medications Documented/Reviewed> [G8427] - Blood Pressure Screening Quality Measure: Screening for High Blood Pressure and Follow-Up Documented Does Patient Have Any of the Following: Active Dx of HTN Blood Pressure Classification: Pre-Hypertensive BP Reading Systolic Measurement: 116 Diastolic Measurement: 81 Screening for High Blood Pressure: Patient Exclusion, Hx of HTN [G9744] - Advance Directives Quality Measure: Measure #47: Care Plan Advance Directives Established: No Advance Directives Information Provided To Patient: No Advance Directives on File: No Living Will: No Power of Ancillary Services Manager Therapy: Yes Power of Ancillary Services Manager Therapy Name: Ascencion Larose son and daughter Advance Care Planning: <Care Plan/Decision Maker Documented; Discussed & Documented> [[id number]] - Elder Abuse Suspicion Index Screening: Elder Abuse Suspicion Index Screening Rely on people for bathing, dressing, shopping, banking, etc: No Prevented from getting food, clothes, medication, etc: No Made to feel shamed or threatened by someone: No Forced to sign papers or use money against will: No Feel afraid, touched in ways not wanted or hurt physically: No Poor eye contact, withdrawn, malnourished, cuts or bruises: No Screening Result: Negative result EASI Reference Information: Virginie PRAJAPATI, Mariusz C, Charlie D, Anahy Mayer.Development and validation of a tool to assist physicians identification of elder abuse: The Elder Abuse Suspicion Index (EASI ). Journal of Elder Abuse and Neglect, 2008; 20 (3): 276-300. - Elder Maltreatment Screen Quality Measures: Elder Maltreatment Screen and Follow-Up Plan Elder Maltreatment Screen: <Negative, No Follow-Up Plan Required> [G9238]
[2019-02-19] MEDS ORDERED: ENOXAPARIN 40 MG/0.4 ML SYR SQ SCH (10:00)
== END 2019-02-18 16:45 | disposition home or self-care (01) ==
LOC: ER 14:39 → MEDSURG 19:19
PROVIDERS: ADMIT Internal Medicine; ATTEND Internal Medicine
DX: K52.9 Noninfective gastroenteritis and colitis, unspecified (principal); E86.0 Dehydration; R10.84 Generalized abdominal pain; R19.7 Diarrhea, unspecified; R11.0 Nausea; I10 Essential (primary) hypertension; E03.9 Hypothyroidism, unspecified; A80.9 Acute poliomyelitis, unspecified; I25.10 Atherosclerotic heart disease of native coronary artery without angina pectoris; J44.9 Chronic obstructive pulmonary disease, unspecified; N17.9 Acute kidney failure, unspecified; Z93.3 Colostomy status; Z95.5 Presence of coronary angioplasty implant and graft; Z98.61 Coronary angioplasty status; Z86.718 Personal history of other venous thrombosis and embolism; Z86.79 Personal history of other diseases of the circulatory system; Z87.442 Personal history of urinary calculi
CPT/HCPCS: 83690; 87329; 85730; 85610; 80048; 80053; 89055; 87425; 82272; 87493; 85027; 74176; G0378 ×2; J2405; 96360; 96361; 96365; 96366; 96374; 96375; 99220; 99285; J7030